=== PATIENT | male | born 1955 | race African-American/Black ===

== ENCOUNTER 2021-06-17 22:52 | Observation (INO) ==
[2021-06-18 00:33] LABS: Alanine Aminotransferase 22 U/L (16-61); Albumin 2.2 G/DL (3.4-5.0); Alkaline Phosphatase 89 U/L (45-117); Aspartate Amino Transferase 32 U/L (0-37); Bilirubin,Total < 0.39 MG/DL (0.20-1.00); Blood Urea Nitrogen 14 MG/DL (7-18); Calcium 8.6 MG/DL (8.5-10.1); Carbon Dioxide 26 MMOL/L (21-32); Estimated Glom Filtration Rate 122 ML/MIN; Glucose 135 MG/DL (74-106); Osmolality,Calculated 277.7 MOS/KG (273-304); Potassium 3.9 MMOL/L (3.5-5.1); Sodium 138 MMOL/L (136-145); Total Protein 8.5 G/DL (6.4-8.2)
[2021-06-18 00:37] LABS: Lactic Acid 3.3 MMOL/L (0.4-2.0)
[2021-06-18 00:44] LABS: Bilirubin,Urine Negative (Negative); Blood, Urine Negative (Negative); Glucose,Urine (UA) 50 mg/dL (Negative); Ketones,Urine Negative (Negative); Mucus,Urine Occasional /LPF (Occasional); Nitrite,Urine Negative (Negative); Protein,Urine Negative; RBC,Urine 5 /HPF (0-4); Squamous Epithelial Cell,Urine Occasional /HPF (0-10); Urine Appearance CLEAR (Clear); Urine Color Yellow (Yellow); Urine Specific Gravity 1.013 (1.001-1.035); Urine Urobilinogen < 2.0 EU/DL (0.2-1.0)
[2021-06-18 00:53] LABS: Barbiturates Screen,Urine Negative (Negative); Benzodiazepines Screen,Urine Negative (Negative); Cannabinoid Screen,Urine Negative (Negative); Opiate Screen,Urine Positive (Negative); Phencyclidine Screen,Urine Negative (Negative)
[2021-06-18 00:57] LABS: Basophils # 0.1 10*3/uL (0.0-0.2); Basophils % 0.6 % (0.0-0.8); Eosinophils # 0.6 10*3/uL (0.0-0.87); Eosinophils % 6.7 % (0.00-10.9); Hematocrit 35.7 VOL% (42.0-52.0); Hemoglobin 10.9 GM/DL (14.0-18.0); Immature Granulocytes % 0.5 %; Immature Granulocytes Absolute 0.04 #; Lymphocytes # 2.8 10*3/uL (1.4-4.0); Lymphocytes % 33.7 % (21.2-54.2); Mean Corpuscular HGB Conc 30.5 GM/DL (32-36); Mean Platelet Volume 11.2 FL (9.6-12.0); Monocytes % 9.3 % (1.7-12.7); Neutrophils % 49.2 % (38.7-73.9); Platelet Count 273 T/CUMM (130-400); Red Blood Count 3.68 MC/CUMM (3.8-5.5); Red Cell Distribution Width 17.4 % (9.3-17.3); White Blood Count 8.4 T/CUMM (4-12)
[2021-06-18] MEDS ORDERED: SIMETHICONE CHEW 125 MG TABLET PO PRN (02:02)
[2021-06-18] MEDS ORDERED: DEXTROSE 50% 25 GM/50 ML VIAL IV PRN (02:02)
[2021-06-18] MEDS ORDERED: GLUCAGON 1 MG VIAL IM PRN (02:02)
[2021-06-18] MEDS ORDERED: ONDANSETRON 4 MG/2 ML VIAL IV PRN (02:02)
[2021-06-18] MEDS ORDERED: SODIUM CHLORIDE 0.9% 1,000 ML IV SCH (06:00)
[2021-06-18] MEDS: INSULIN REGULAR 100 UNIT/ML SUBCUT SCH ×3 (08:44→16:37)
[2021-06-18] MEDS ORDERED: risperiDONE 1 MG TABLET PO SCH (09:00)
[2021-06-18] MEDS: DOCUSATE SODIUM 100 MG CAPSULE PO SCH ×2 (09:21→22:16)
[2021-06-18] MEDS: lisinopriL 2.5 MG TABLET PO SCH (09:21)
[2021-06-18] MEDS: POTASSIUM CHLORIDE 10 MEQ TABLET PO SCH (09:21)
[2021-06-18] MEDS: SERTRALINE 100 MG TABLET PO SCH (09:21)
[2021-06-18] MEDS: ASPIRIN EC 81 MG TABLET PO SCH (09:21)
[2021-06-18] MEDS: FOLIC ACID 1 MG TABLET PO SCH (09:22)
[2021-06-18] MEDS: METOPROLOL TARTRATE 25 MG TABLET PO SCH ×2 (09:22→22:19)
[2021-06-18] MEDS: amLODIPine 5 MG TABLET PO SCH (09:22)
[2021-06-18] MEDS: PANTOPRAZOLE 40 MG TABLET PO SCH (09:23)
[2021-06-18] MEDS: cefTRIAXone 1,000 MG in SODIUM CHLORIDE 0.9% 100 ML IV SCH (09:23)
[2021-06-18] MEDS: ENOXAPARIN 40 MG/0.4 ML SYRINGE SUBCUT SCH (09:23)
[2021-06-18] MEDS: DIVALPROEX 500 MG TABLET PO SCH ×2 (09:23→22:16)
[2021-06-18] MEDS: ACETAMINOPHEN 325 MG TABLET PO PRN ×2 (09:32→18:21)
[2021-06-18] MEDS ORDERED: MAGNESIUM CITRATE 300 ML BOTTLE PO ONE (10:15)
[2021-06-18] MEDS ORDERED: SODIUM CHLORIDE 0.9% 2,000 ML IV ONE (15:38)
[2021-06-18] MEDS: MENTHOL/ZINC OXIDE OINT 71 GM JAR TOP SCH (16:01)
[2021-06-18] MEDS ORDERED: INSULIN GLARGINE 100 UNIT/ML SUBCUT SCH (21:00)
[2021-06-18] MEDS: INSULIN GLARGINE 100 UNIT/ML SUBCUT SCH (22:15)
[2021-06-18] MEDS: LACTULOSE 20 GM/30 ML UDCUP PO SCH (22:15)
[2021-06-18] MEDS: ATORVASTATIN 40 MG TABLET PO SCH (22:18)
[2021-06-19] MEDS: MENTHOL/ZINC OXIDE OINT 71 GM JAR TOP SCH ×3 (00:15→21:03)
[2021-06-19] MEDS: INSULIN REGULAR 100 UNIT/ML SUBCUT SCH ×5 (00:17→20:34)
[2021-06-19 02:05] LABS: Basophils % 0.4 % (0.0-0.8); Eosinophils # 0.4 10*3/uL (0.0-0.87); Eosinophils % 4.4 % (0.00-10.9); Hematocrit 32.4 VOL% (42.0-52.0); Hemoglobin 9.6 GM/DL (14.0-18.0); Immature Granulocytes % 0.2 %; Immature Granulocytes Absolute 0.02 #; Lymphocytes # 3.9 10*3/uL (1.4-4.0); Lymphocytes % 42.4 % (21.2-54.2); Mean Corpuscular HGB Conc 29.6 GM/DL (32-36); Mean Corpuscular Volume 97.9 FL (87-102); Mean Platelet Volume 10.2 FL (9.6-12.0); Monocytes % 9.7 % (1.7-12.7); Neutrophils % 42.9 % (38.7-73.9); Platelet Count 261 T/CUMM (130-400); Red Blood Count 3.31 MC/CUMM (3.8-5.5); Red Cell Distribution Width 17.8 % (9.3-17.3); White Blood Count 9.3 T/CUMM (4-12)
[2021-06-19 02:12] LABS: Calcium 8.5 MG/DL (8.5-10.1); Osmolality,Calculated 281.1 MOS/KG (273-304); Potassium 4.4 MMOL/L (3.5-5.1)
[2021-06-19] MEDS: ACETAMINOPHEN 325 MG TABLET PO PRN ×2 (06:13→10:07)
[2021-06-19] MEDS: cefTRIAXone 1,000 MG in SODIUM CHLORIDE 0.9% 100 ML IV SCH (06:30)
[2021-06-19] MEDS: LACTULOSE 20 GM/30 ML UDCUP PO SCH ×3 (10:04→21:05)
[2021-06-19] MEDS: ENOXAPARIN 40 MG/0.4 ML SYRINGE SUBCUT SCH (10:05)
[2021-06-19] MEDS: PANTOPRAZOLE 40 MG TABLET PO SCH (10:05)
[2021-06-19] MEDS: DIVALPROEX 500 MG TABLET PO SCH ×2 (10:05→20:49)
[2021-06-19] MEDS: lisinopriL 2.5 MG TABLET PO SCH (10:05)
[2021-06-19] MEDS: POTASSIUM CHLORIDE 10 MEQ TABLET PO SCH (10:06)
[2021-06-19] MEDS: METOPROLOL TARTRATE 25 MG TABLET PO SCH ×2 (10:06→20:49)
[2021-06-19] MEDS: ASPIRIN EC 81 MG TABLET PO SCH (10:06)
[2021-06-19] MEDS: SERTRALINE 100 MG TABLET PO SCH (10:06)
[2021-06-19] MEDS: amLODIPine 5 MG TABLET PO SCH (10:06)
[2021-06-19] MEDS: FOLIC ACID 1 MG TABLET PO SCH (10:07)
[2021-06-19] MEDS: DOCUSATE SODIUM 100 MG CAPSULE PO SCH ×3 (10:07→21:05)
[2021-06-19] MEDS ORDERED: oxyCODONE/ACETAMINOPHEN 5-325 MG TABLET PO ONE (11:53)
[2021-06-19] MEDS: oxyCODONE/ACETAMINOPHEN 5-325 MG TABLET PO PRN (18:35)
[2021-06-19] MEDS: INSULIN GLARGINE 100 UNIT/ML SUBCUT SCH (20:47)
[2021-06-19] MEDS: ATORVASTATIN 40 MG TABLET PO SCH (20:49)
[2021-06-20] MEDS: oxyCODONE/ACETAMINOPHEN 5-325 MG TABLET PO PRN ×4 (01:23→19:14)
[2021-06-20 05:07] LABS: Platelet Estimate Adequate
[2021-06-20 05:08] LABS: Anisocytosis 1+; Hypochromasia 2+
[2021-06-20 05:10] LABS: Basophils % 0.5 % (0.0-0.8); Eosinophils # 0.5 10*3/uL (0.0-0.87); Hematocrit 33.4 VOL% (42.0-52.0); Hemoglobin 9.8 GM/DL (14.0-18.0); Immature Granulocytes % 0.3 %; Immature Granulocytes Absolute 0.02 #; Lymphocytes # 2.4 10*3/uL (1.4-4.0); Lymphocytes % 31.9 % (21.2-54.2); Mean Corpuscular HGB Conc 29.3 GM/DL (32-36); Mean Corpuscular Volume 98.2 FL (87-102); Mean Platelet Volume 11.1 FL (9.6-12.0); Neutrophils % 51.3 % (38.7-73.9); Platelet Count 240 T/CUMM (130-400); Red Cell Distribution Width 17.9 % (9.3-17.3); White Blood Count 7.6 T/CUMM (4-12)
[2021-06-20] MEDS: cefTRIAXone 1,000 MG in SODIUM CHLORIDE 0.9% 100 ML IV SCH (06:10)
[2021-06-20] MEDS: INSULIN REGULAR 100 UNIT/ML SUBCUT SCH ×4 (09:29→22:04)
[2021-06-20] MEDS: lisinopriL 2.5 MG TABLET PO SCH (09:33)
[2021-06-20] MEDS: LACTULOSE 20 GM/30 ML UDCUP PO SCH ×3 (09:33→22:03)
[2021-06-20] MEDS: PANTOPRAZOLE 40 MG TABLET PO SCH (09:34)
[2021-06-20] MEDS: FOLIC ACID 1 MG TABLET PO SCH (09:34)
[2021-06-20] MEDS: DOCUSATE SODIUM 100 MG CAPSULE PO SCH ×2 (09:34→22:03)
[2021-06-20] MEDS: POTASSIUM CHLORIDE 10 MEQ TABLET PO SCH (09:34)
[2021-06-20] MEDS: ASPIRIN EC 81 MG TABLET PO SCH (09:34)
[2021-06-20] MEDS: SERTRALINE 100 MG TABLET PO SCH (09:34)
[2021-06-20] MEDS: METOPROLOL TARTRATE 25 MG TABLET PO SCH ×2 (09:35→22:03)
[2021-06-20] MEDS: amLODIPine 5 MG TABLET PO SCH (09:35)
[2021-06-20] MEDS: DIVALPROEX 500 MG TABLET PO SCH ×2 (09:35→22:02)
[2021-06-20] MEDS: ENOXAPARIN 40 MG/0.4 ML SYRINGE SUBCUT SCH (09:35)
[2021-06-20] MEDS: MENTHOL/ZINC OXIDE OINT 71 GM JAR TOP SCH ×2 (09:36→22:03)
[2021-06-20] MEDS: ATORVASTATIN 40 MG TABLET PO SCH (22:03)
[2021-06-20] MEDS: INSULIN GLARGINE 100 UNIT/ML SUBCUT SCH (22:04)
[2021-06-21] MEDS: oxyCODONE/ACETAMINOPHEN 5-325 MG TABLET PO PRN ×4 (00:27→17:51)
[2021-06-21] MEDS: cefTRIAXone 1,000 MG in SODIUM CHLORIDE 0.9% 100 ML IV SCH (06:40)
[2021-06-21] MEDS: INSULIN REGULAR 100 UNIT/ML SUBCUT SCH ×4 (08:21→21:52)
[2021-06-21] MEDS: METOPROLOL TARTRATE 25 MG TABLET PO SCH ×2 (10:38→21:15)
[2021-06-21] MEDS: FOLIC ACID 1 MG TABLET PO SCH (10:38)
[2021-06-21] MEDS: lisinopriL 2.5 MG TABLET PO SCH (10:38)
[2021-06-21] MEDS: PANTOPRAZOLE 40 MG TABLET PO SCH (10:38)
[2021-06-21] MEDS: amLODIPine 5 MG TABLET PO SCH (10:38)
[2021-06-21] MEDS: ASPIRIN EC 81 MG TABLET PO SCH (10:38)
[2021-06-21] MEDS: DIVALPROEX 500 MG TABLET PO SCH ×2 (10:38→21:14)
[2021-06-21] MEDS: ENOXAPARIN 40 MG/0.4 ML SYRINGE SUBCUT SCH (10:39)
[2021-06-21] MEDS: MENTHOL/ZINC OXIDE OINT 71 GM JAR TOP SCH ×2 (10:39→21:52)
[2021-06-21] MEDS: DOCUSATE SODIUM 100 MG CAPSULE PO SCH ×2 (10:39→21:52)
[2021-06-21] MEDS: SERTRALINE 100 MG TABLET PO SCH (10:39)
[2021-06-21] MEDS: POTASSIUM CHLORIDE 10 MEQ TABLET PO SCH (10:39)
[2021-06-21] MEDS: LACTULOSE 20 GM/30 ML UDCUP PO SCH ×2 (10:40→21:52)
[2021-06-21] MEDS: ATORVASTATIN 40 MG TABLET PO SCH (21:14)
[2021-06-21] MEDS: INSULIN GLARGINE 100 UNIT/ML SUBCUT SCH (21:53)
[2021-06-22] MEDS: oxyCODONE/ACETAMINOPHEN 5-325 MG TABLET PO PRN ×5 (00:10→23:40)
[2021-06-22 06:48] LABS: Calcium 8.3 MG/DL (8.5-10.1); Osmolality,Calculated 272.7 MOS/KG (273-304); Potassium 4.1 MMOL/L (3.5-5.1)
[2021-06-22 07:03] LABS: Basophils % 0.4 % (0.0-0.8); Eosinophils # 0.5 10*3/uL (0.0-0.87); Eosinophils % 6.8 % (0.00-10.9); Hematocrit 35.4 VOL% (42.0-52.0); Hemoglobin 10.6 GM/DL (14.0-18.0); Immature Granulocytes % 0.4 %; Immature Granulocytes Absolute 0.03 #; Lymphocytes # 2.4 10*3/uL (1.4-4.0); Lymphocytes % 34.4 % (21.2-54.2); Mean Corpuscular HGB Conc 29.9 GM/DL (32-36); Mean Corpuscular Volume 97.5 FL (87-102); Mean Platelet Volume 10.3 FL (9.6-12.0); Monocytes % 8.1 % (1.7-12.7); NRBC # 0.03 10*3/uL; Neutrophils % 49.9 % (38.7-73.9); Platelet Count 247 T/CUMM (130-400); Red Blood Count 3.63 MC/CUMM (3.8-5.5)
[2021-06-22] MEDS: cefTRIAXone 1,000 MG in SODIUM CHLORIDE 0.9% 100 ML IV SCH (07:38)
[2021-06-22] MEDS: INSULIN REGULAR 100 UNIT/ML SUBCUT SCH ×4 (07:47→22:38)
[2021-06-22] MEDS: LACTULOSE 20 GM/30 ML UDCUP PO SCH ×2 (09:20→21:35)
[2021-06-22] MEDS: ENOXAPARIN 40 MG/0.4 ML SYRINGE SUBCUT SCH (09:21)
[2021-06-22] MEDS: POTASSIUM CHLORIDE 10 MEQ TABLET PO SCH (09:21)
[2021-06-22] MEDS: SERTRALINE 100 MG TABLET PO SCH (09:22)
[2021-06-22] MEDS: FOLIC ACID 1 MG TABLET PO SCH (09:22)
[2021-06-22] MEDS: METOPROLOL TARTRATE 25 MG TABLET PO SCH ×2 (09:22→21:36)
[2021-06-22] MEDS: DOCUSATE SODIUM 100 MG CAPSULE PO SCH ×2 (09:22→21:35)
[2021-06-22] MEDS: lisinopriL 2.5 MG TABLET PO SCH (09:22)
[2021-06-22] MEDS: DIVALPROEX 500 MG TABLET PO SCH ×2 (09:22→21:35)
[2021-06-22] MEDS: amLODIPine 5 MG TABLET PO SCH (09:22)
[2021-06-22] MEDS: PANTOPRAZOLE 40 MG TABLET PO SCH (09:22)
[2021-06-22] MEDS: ASPIRIN EC 81 MG TABLET PO SCH (09:22)
[2021-06-22] MEDS: MENTHOL/ZINC OXIDE OINT 71 GM JAR TOP SCH ×2 (09:53→22:38)
[2021-06-22] MEDS ORDERED: TUBERCULIN SKIN TEST 0.1 ML SYRINGE INTRADERM ONE (12:33)
[2021-06-22] MEDS: ATORVASTATIN 40 MG TABLET PO SCH (21:36)
[2021-06-22] MEDS: INSULIN GLARGINE 100 UNIT/ML SUBCUT SCH (22:39)
[2021-06-23] MEDS: oxyCODONE/ACETAMINOPHEN 5-325 MG TABLET PO PRN ×4 (05:49→23:35)
[2021-06-23] MEDS: cefTRIAXone 1,000 MG in SODIUM CHLORIDE 0.9% 100 ML IV SCH (06:00)
[2021-06-23] MEDS: INSULIN REGULAR 100 UNIT/ML SUBCUT SCH ×4 (07:36→21:43)
[2021-06-23] MEDS: LACTULOSE 20 GM/30 ML UDCUP PO SCH ×2 (09:27→21:42)
[2021-06-23] MEDS: ASPIRIN EC 81 MG TABLET PO SCH (09:28)
[2021-06-23] MEDS: PANTOPRAZOLE 40 MG TABLET PO SCH (09:28)
[2021-06-23] MEDS: SERTRALINE 100 MG TABLET PO SCH (09:28)
[2021-06-23] MEDS: amLODIPine 5 MG TABLET PO SCH (09:28)
[2021-06-23] MEDS: DOCUSATE SODIUM 100 MG CAPSULE PO SCH ×2 (09:28→21:42)
[2021-06-23] MEDS: FOLIC ACID 1 MG TABLET PO SCH (09:28)
[2021-06-23] MEDS: DIVALPROEX 500 MG TABLET PO SCH ×2 (09:28→21:42)
[2021-06-23] MEDS: POTASSIUM CHLORIDE 10 MEQ TABLET PO SCH (09:28)
[2021-06-23] MEDS: lisinopriL 2.5 MG TABLET PO SCH (09:34)
[2021-06-23] MEDS: METOPROLOL TARTRATE 25 MG TABLET PO SCH ×2 (09:34→21:43)
[2021-06-23] MEDS: ENOXAPARIN 40 MG/0.4 ML SYRINGE SUBCUT SCH (09:35)
[2021-06-23] MEDS: MENTHOL/ZINC OXIDE OINT 71 GM JAR TOP SCH ×2 (09:35→21:42)
[2021-06-23] MEDS: INSULIN GLARGINE 100 UNIT/ML SUBCUT SCH (21:43)
[2021-06-23] MEDS: ATORVASTATIN 40 MG TABLET PO SCH (21:43)
[2021-06-24] MEDS: oxyCODONE/ACETAMINOPHEN 5-325 MG TABLET PO PRN ×2 (05:35→12:16)
[2021-06-24] MEDS: cefTRIAXone 1,000 MG in SODIUM CHLORIDE 0.9% 100 ML IV SCH (06:00)
[2021-06-24] MEDS: INSULIN REGULAR 100 UNIT/ML SUBCUT SCH ×3 (09:17→17:13)
[2021-06-24] MEDS: DOCUSATE SODIUM 100 MG CAPSULE PO SCH (10:12)
[2021-06-24] MEDS: FOLIC ACID 1 MG TABLET PO SCH (10:12)
[2021-06-24] MEDS: ASPIRIN EC 81 MG TABLET PO SCH (10:12)
[2021-06-24] MEDS: POTASSIUM CHLORIDE 10 MEQ TABLET PO SCH (10:12)
[2021-06-24] MEDS: lisinopriL 2.5 MG TABLET PO SCH (10:12)
[2021-06-24] MEDS: MENTHOL/ZINC OXIDE OINT 71 GM JAR TOP SCH (10:13)
[2021-06-24] MEDS: PANTOPRAZOLE 40 MG TABLET PO SCH (10:13)
[2021-06-24] MEDS: amLODIPine 5 MG TABLET PO SCH (10:13)
[2021-06-24] MEDS: SERTRALINE 100 MG TABLET PO SCH (10:13)
[2021-06-24] MEDS: METOPROLOL TARTRATE 25 MG TABLET PO SCH (10:13)
[2021-06-24] MEDS: DIVALPROEX 500 MG TABLET PO SCH (10:13)
[2021-06-24] MEDS: LACTULOSE 20 GM/30 ML UDCUP PO SCH (10:13)
[2021-06-24] MEDS: ENOXAPARIN 40 MG/0.4 ML SYRINGE SUBCUT SCH (10:15)
[2021-06-24 16:58] VITALS: BP 106/45
== END 2021-06-24 17:55 | disposition home or self-care (01) ==
LOC: N.EDINP 22:52 → N.ED 22:52 → SUATTDRO 06-18 02:02 → N.2W 06-18 02:33 → SUATTDRO 06-18 13:01
PROVIDERS: ADMIT Nurse Practitioner Family; ATTEND Internal Medicine

== ENCOUNTER 2022-02-10 22:29 | Inpatient (IN) ==
[2022-02-10] MEDS ORDERED: SODIUM CHLORIDE 0.9% 1,000 ML IV STA ×2 (23:04→23:53)
[2022-02-10 23:19] LABS: Basophils % 0.2 % (0.0-0.8); Eosinophils % 0.4 % (0.00-10.9); Hematocrit 36.6 VOL% (42.0-52.0); Immature Granulocytes % 0.3 %; Immature Granulocytes Absolute 0.03 #; Lymphocytes # 1.6 10*3/uL (1.4-4.0); Lymphocytes % 17.6 % (21.2-54.2); Mean Corpuscular HGB Conc 30.1 GM/DL (32-36); Mean Corpuscular Volume 103.1 FL (87-102); Monocytes # 0.6 10*3/uL (0.11-0.8); Monocytes % 6.9 % (1.7-12.7); Neutrophils % 74.6 % (38.7-73.9); Platelet Count 205 T/CUMM (130-400); Red Blood Count 3.55 MC/CUMM (3.8-5.5); Red Cell Distribution Width 16.2 % (9.3-17.3)
[2022-02-10 23:28] LABS: Hyaline Casts,Urine 163 /LPF (0-3); Mucus,Urine Occasional /LPF (Occasional); RBC,Urine 22 /HPF (0-4); Squamous Epithelial Cell,Urine Occasional /HPF (0-10)
[2022-02-10 23:29] LABS: Bilirubin,Urine Large mg/dL (Negative); Blood, Urine Large mg/dL (Negative); Glucose,Urine (UA) Negative (Negative); Ketones,Urine 15 mg/dL (Negative); Nitrite,Urine Negative (Negative); Protein,Urine 100 mg/dL (Negative); Urine Appearance CLOUDY (Clear); Urine Color Yellow (Yellow); Urine Urobilinogen 0.2 eU/dL (<2.0)
[2022-02-10 23:36] LABS: PT Patient Result 11.5 SECS (10.5-12.0); Partial Thromboplastin Time 28.3 SECS (23.8-32.1)
[2022-02-10 23:42] LABS: Albumin 2.7 G/DL (3.4-5.0); Bilirubin,Total 0.4 MG/DL (0.20-1.00); Calcium 8.6 MG/DL (8.5-10.1); Osmolality,Calculated 291.8 MOS/KG (273-304); Total Protein 8.3 G/DL (6.4-8.2)
[2022-02-10 23:51] LABS: Potassium 6.4 MMOL/L (3.5-5.1)
[2022-02-10] MEDS ORDERED: DEXTROSE 50% 25 GM/50 ML VIAL IV STA (23:53)
[2022-02-10] MEDS ORDERED: cefTRIAXone 1,000 MG in SODIUM CHLORIDE 0.9% 100 ML IV STA (23:53)
[2022-02-10] MEDS ORDERED: DEXTROSE 50% 25 GM/50 ML SYRINGE IV STA (23:54)
[2022-02-10] MEDS ORDERED: DEXTROSE 50% 25 GM/50 ML SYRINGE IV ONE (23:55)
[2022-02-11] MEDS ORDERED: DEXTROSE 50% 25 GM/50 ML VIAL IV STA (00:22)
[2022-02-11] MEDS ORDERED: INSULIN REGULAR 100 UNIT/ML IV STA (00:22)
[2022-02-11] MEDS ORDERED: DEXTROSE 50% 25 GM/50 ML SYRINGE IV STA (00:23)
[2022-02-11] MEDS ORDERED: SODIUM BICARBONATE 50 MEQ/50 ML SYRINGE IV ONE (00:35)
[2022-02-11] MEDS ORDERED: ALBUTEROL 2.5 MG/3 ML NEB RESP TX PRN (00:39)
[2022-02-11] MEDS ORDERED: ONDANSETRON 4 MG/2 ML VIAL IV PRN (00:41)
[2022-02-11] MEDS ORDERED: SODIUM BICARBONATE 50 MEQ/50 ML VIAL IV STA (00:41)
[2022-02-11] MEDS ORDERED: SODIUM ZIRCONIUM CYCLOSILICATE 10 GM PACK PO ONE (00:45)
[2022-02-11] MEDS ORDERED: GLUCAGON 1 MG VIAL IM PRN (01:11)
[2022-02-11] MEDS ORDERED: DEXTROSE 10% 250 ML BAG IV PRN (01:22)
[2022-02-11] MEDS: HYDROCORTISONE 100 MG VIAL IV SCH ×3 (01:30→17:15)
[2022-02-11] MEDS: PANTOPRAZOLE 40 MG VIAL IV SCH (01:30)
[2022-02-11] MEDS ORDERED: PNEUMOCOCCAL VACCINE (13 VALENT) 0.5 ML SYRINGE IM ONE (01:53)
[2022-02-11] MEDS ORDERED: SODIUM BICARB INJ 150 MEQ in DEXTROSE 5% 1,000 ML IV SCH (02:00)
[2022-02-11 04:24] LABS: Basophils % 0.3 % (0.0-0.8); Eosinophils % 0.5 % (0.00-10.9); Hematocrit 36.1 VOL% (42.0-52.0); Hemoglobin 10.9 GM/DL (14.0-18.0); Immature Granulocytes % 0.3 %; Immature Granulocytes Absolute 0.02 #; Lymphocytes % 14.1 % (21.2-54.2); Mean Corpuscular HGB Conc 30.2 GM/DL (32-36); Mean Corpuscular Volume 101.4 FL (87-102); Mean Platelet Volume 10.2 FL (9.6-12.0); Monocytes # 0.3 10*3/uL (0.11-0.8); Monocytes % 4.5 % (1.7-12.7); Neutrophils % 80.3 % (38.7-73.9); Platelet Count 178 T/CUMM (130-400); Red Blood Count 3.56 MC/CUMM (3.8-5.5); Red Cell Distribution Width 16.2 % (9.3-17.3); White Blood Count 7.3 T/CUMM (4-12)
[2022-02-11 04:53] LABS: Albumin 2.4 G/DL (3.4-5.0); Bilirubin,Total 0.4 MG/DL (0.20-1.00); Calcium 8.4 MG/DL (8.5-10.1); Osmolality,Calculated 296.4 MOS/KG (273-304); Total Protein 8.3 G/DL (6.4-8.2)
[2022-02-11] MEDS: SODIUM BICARB INJ 100 MEQ in DEXTROSE 5% 1,000 ML IV SCH ×2 (06:30→15:33)
[2022-02-11] MEDS: risperiDONE 1 MG TABLET PO SCH ×2 (09:33→20:07)
[2022-02-11] MEDS: FOLIC ACID 1 MG TABLET PO SCH (09:33)
[2022-02-11] MEDS: SERTRALINE 100 MG TABLET PO SCH (09:34)
[2022-02-11] MEDS ORDERED: SODIUM CHLORIDE 0.9% 500 ML IV ONE (12:00)
[2022-02-11 14:52] LABS: Calcium 7.9 MG/DL (8.5-10.1); Potassium 3.7 MMOL/L (3.5-5.1)
[2022-02-11] MEDS ORDERED: MAGNESIUM SULF RIDER 2 GM/50 ML PREMIX IV ONE (15:10)
[2022-02-11] MEDS: NOREPINEPHRINE 8 MG in SODIUM CHLORIDE 0.9% 242 ML IV PRN (15:15)
[2022-02-11] MEDS: SODIUM CHLORIDE 0.9% 1,000 ML IV SCH (15:32)
[2022-02-12] MEDS: NOREPINEPHRINE 8 MG in SODIUM CHLORIDE 0.9% 242 ML IV PRN (00:40)
[2022-02-12] MEDS: HYDROCORTISONE 100 MG VIAL IV SCH ×3 (01:34→16:34)
[2022-02-12] MEDS: PANTOPRAZOLE 40 MG VIAL IV SCH (01:34)
[2022-02-12] MEDS: cefTRIAXone 1,000 MG in SODIUM CHLORIDE 0.9% 100 ML IV SCH (01:34)
[2022-02-12] MEDS: SODIUM CHLORIDE 0.9% 1,000 ML IV SCH ×3 (01:35→20:54)
[2022-02-12 03:51] LABS: Basophils % 0.1 % (0.0-0.8); Eosinophils % 0.1 % (0.00-10.9); Hemoglobin 10.4 GM/DL (14.0-18.0); Immature Granulocytes % 0.5 %; Immature Granulocytes Absolute 0.07 #; Lymphocytes # 1.9 10*3/uL (1.4-4.0); Mean Corpuscular HGB Conc 31.5 GM/DL (32-36); Mean Corpuscular Volume 98.8 FL (87-102); Mean Platelet Volume 10.3 FL (9.6-12.0); Monocytes # 0.6 10*3/uL (0.11-0.8); Monocytes % 4.5 % (1.7-12.7); Neutrophils % 80.8 % (38.7-73.9); Platelet Count 190 T/CUMM (130-400); Red Blood Count 3.34 MC/CUMM (3.8-5.5); White Blood Count 13.5 T/CUMM (4-12)
[2022-02-12 04:03] LABS: Alanine Aminotransferase 15 U/L (16-61); Alkaline Phosphatase 88 U/L (45-117); Aspartate Amino Transferase 23 U/L (0-37); Bilirubin,Total < 0.39 MG/DL (0.20-1.00); Blood Urea Nitrogen 36 MG/DL (7-18); Calcium 7.6 MG/DL (8.5-10.1); Carbon Dioxide 24 MMOL/L (21-32); Chloride 112 MMOL/L (98-107); Glucose 157 MG/DL (74-106); Osmolality,Calculated 296.8 MOS/KG (273-304); Potassium 3.5 MMOL/L (3.5-5.1); Sodium 144 MMOL/L (136-145); Total Protein 7.6 G/DL (6.4-8.2)
[2022-02-12] MEDS: FOLIC ACID 1 MG TABLET PO SCH (08:39)
[2022-02-12] MEDS: risperiDONE 1 MG TABLET PO SCH ×2 (08:39→20:52)
[2022-02-12] MEDS: SERTRALINE 100 MG TABLET PO SCH (08:39)
[2022-02-12] MEDS: MORPHINE 2 MG/1 ML SYRINGE IV PRN ×4 (08:41→21:55)
[2022-02-13] MEDS: HYDROCORTISONE 100 MG VIAL IV SCH ×3 (00:54→17:20)
[2022-02-13] MEDS: PANTOPRAZOLE 40 MG VIAL IV SCH (00:56)
[2022-02-13] MEDS: cefTRIAXone 1,000 MG in SODIUM CHLORIDE 0.9% 100 ML IV SCH (00:59)
[2022-02-13 05:47] LABS: Basophils % 0.1 % (0.0-0.8); Hematocrit 29.3 VOL% (42.0-52.0); Hemoglobin 8.9 GM/DL (14.0-18.0); Immature Granulocytes % 0.7 %; Lymphocytes # 1.1 10*3/uL (1.4-4.0); Lymphocytes % 12.9 % (21.2-54.2); Mean Corpuscular HGB Conc 30.4 GM/DL (32-36); Mean Corpuscular Volume 101.4 FL (87-102); Mean Platelet Volume 10.7 FL (9.6-12.0); Monocytes # 0.4 10*3/uL (0.11-0.8); Neutrophils % 81.3 % (38.7-73.9); Platelet Count 163 T/CUMM (130-400); Red Blood Count 2.89 MC/CUMM (3.8-5.5); Red Cell Distribution Width 16.4 % (9.3-17.3); White Blood Count 8.8 T/CUMM (4-12)
[2022-02-13 05:48] LABS: Immature Granulocytes Absolute 0.06 #
[2022-02-13 06:11] LABS: Alanine Aminotransferase 14 U/L (16-61); Albumin 1.8 G/DL (3.4-5.0); Alkaline Phosphatase 71 U/L (45-117); Aspartate Amino Transferase 19 U/L (0-37); Bilirubin,Total < 0.39 MG/DL (0.20-1.00); Blood Urea Nitrogen 18 MG/DL (7-18); Calcium 7.7 MG/DL (8.5-10.1); Carbon Dioxide 25 MMOL/L (21-32); Chloride 118 MMOL/L (98-107); Glucose 107 MG/DL (74-106); Osmolality,Calculated 297.1 MOS/KG (273-304); Potassium 3.3 MMOL/L (3.5-5.1); Sodium 149 MMOL/L (136-145); Total Protein 6.5 G/DL (6.4-8.2)
[2022-02-13] MEDS ORDERED: POTASSIUM CHLORIDE 20 MEQ TABLET PO ONE ×2 (07:23→13:22)
[2022-02-13] MEDS: SODIUM CHLORIDE 0.9% 1,000 ML IV SCH (09:02)
[2022-02-13] MEDS: FOLIC ACID 1 MG TABLET PO SCH (09:03)
[2022-02-13] MEDS: risperiDONE 1 MG TABLET PO SCH ×2 (09:03→20:58)
[2022-02-13] MEDS: SERTRALINE 100 MG TABLET PO SCH (09:03)
[2022-02-13] MEDS: MORPHINE 2 MG/1 ML SYRINGE IV PRN ×3 (09:14→21:02)
[2022-02-13] MEDS ORDERED: MAGNESIUM SULF RIDER 2 GM/50 ML PREMIX IV ONE (09:37)
[2022-02-13] MEDS: DEXTROSE 5% 1,000 ML IV SCH (10:24)
[2022-02-13 13:00] LABS: Calcium 7.4 MG/DL (8.5-10.1); Osmolality,Calculated 293.6 MOS/KG (273-304); Potassium 3.2 MMOL/L (3.5-5.1)
[2022-02-13] MEDS ORDERED: MAGNESIUM HYDROXIDE SUSP 30 ML UDCUP PO ONE (17:05)
[2022-02-13] MEDS ORDERED: POLYETHYLENE GLYCOL POWDER 17 GM PACK PO ONE (17:06)
[2022-02-14] MEDS: PANTOPRAZOLE 40 MG VIAL IV SCH (00:49)
[2022-02-14] MEDS: HYDROCORTISONE 100 MG VIAL IV SCH ×2 (00:51→08:59)
[2022-02-14] MEDS: cefTRIAXone 1,000 MG in SODIUM CHLORIDE 0.9% 100 ML IV SCH (00:52)
[2022-02-14] MEDS: DEXTROSE 5% 1,000 ML IV SCH ×2 (00:53→07:23)
[2022-02-14] MEDS: FOLIC ACID 1 MG TABLET PO SCH (08:48)
[2022-02-14] MEDS: risperiDONE 1 MG TABLET PO SCH ×2 (08:48→21:56)
[2022-02-14] MEDS: SERTRALINE 100 MG TABLET PO SCH (08:49)
[2022-02-14] MEDS: MORPHINE 2 MG/1 ML SYRINGE IV PRN ×3 (09:02→21:59)
[2022-02-14 09:31] LABS: Basophils % 0.1 % (0.0-0.8); Eosinophils % 0.3 % (0.00-10.9); Hematocrit 32.7 VOL% (42.0-52.0); Hemoglobin 10.2 GM/DL (14.0-18.0); Immature Granulocytes % 0.9 %; Immature Granulocytes Absolute 0.09 #; Lymphocytes # 2.3 10*3/uL (1.4-4.0); Lymphocytes % 22.7 % (21.2-54.2); Mean Corpuscular HGB Conc 31.2 GM/DL (32-36); Mean Corpuscular Volume 98.8 FL (87-102); Mean Platelet Volume 10.5 FL (9.6-12.0); Monocytes # 0.5 10*3/uL (0.11-0.8); Monocytes % 4.7 % (1.7-12.7); NRBC # 0.02 10*3/uL; Neutrophils % 71.3 % (38.7-73.9); Platelet Count 149 T/CUMM (130-400); Red Blood Count 3.31 MC/CUMM (3.8-5.5); Red Cell Distribution Width 16.1 % (9.3-17.3); White Blood Count 10.2 T/CUMM (4-12)
[2022-02-14 09:35] LABS: Calcium 7.2 MG/DL (8.5-10.1); Osmolality,Calculated 284.1 MOS/KG (273-304); Potassium 3.7 MMOL/L (3.5-5.1)
[2022-02-14] MEDS ORDERED: BISACODYL 5 MG TABLET PO ONE (10:47)
[2022-02-14] MEDS ORDERED: MAGNESIUM SULF RIDER 2 GM/50 ML PREMIX IV ONE ×3 (11:03→15:36)
[2022-02-14] MEDS: METOPROLOL TARTRATE 25 MG TABLET PO SCH ×2 (11:08→21:56)
[2022-02-14] MEDS: amLODIPine 5 MG TABLET PO SCH (11:08)
[2022-02-14] MEDS: DOCUSATE SODIUM 100 MG CAPSULE PO SCH ×2 (11:09→21:56)
[2022-02-14] MEDS ORDERED: ATORVASTATIN 40 MG TABLET PO SCH (21:00)
[2022-02-14] MEDS ORDERED: MELATONIN 3 MG TABLET PO SCH (21:00)
[2022-02-15] MEDS: PANTOPRAZOLE 40 MG VIAL IV SCH (01:15)
[2022-02-15] MEDS: cefTRIAXone 1,000 MG in SODIUM CHLORIDE 0.9% 100 ML IV SCH (01:18)
[2022-02-15 05:00] LABS: Basophils % 0.2 % (0.0-0.8); Eosinophils # 0.3 10*3/uL (0.0-0.87); Eosinophils % 3.1 % (0.00-10.9); Hematocrit 31.8 VOL% (42.0-52.0); Immature Granulocytes % 0.6 %; Immature Granulocytes Absolute 0.06 #; Lymphocytes % 31.6 % (21.2-54.2); Mean Corpuscular HGB Conc 31.4 GM/DL (32-36); Mean Corpuscular Volume 99.4 FL (87-102); Mean Platelet Volume 10.5 FL (9.6-12.0); Monocytes # 0.7 10*3/uL (0.11-0.8); Monocytes % 6.8 % (1.7-12.7); Neutrophils % 57.7 % (38.7-73.9); Platelet Count 141 T/CUMM (130-400); Red Cell Distribution Width 15.9 % (9.3-17.3); White Blood Count 9.6 T/CUMM (4-12)
[2022-02-15 05:17] LABS: Potassium 3.5 MMOL/L (3.5-5.1)
[2022-02-15] MEDS: METOPROLOL TARTRATE 25 MG TABLET PO SCH (09:04)
[2022-02-15] MEDS: amLODIPine 5 MG TABLET PO SCH (09:04)
[2022-02-15] MEDS: FOLIC ACID 1 MG TABLET PO SCH (09:04)
[2022-02-15] MEDS: DOCUSATE SODIUM 100 MG CAPSULE PO SCH (09:04)
[2022-02-15] MEDS: risperiDONE 1 MG TABLET PO SCH (09:04)
[2022-02-15] MEDS: SERTRALINE 100 MG TABLET PO SCH (09:06)
[2022-02-15] MEDS: MORPHINE 2 MG/1 ML SYRINGE IV PRN (09:16)
[2022-02-15] MEDS ORDERED: MAGNESIUM HYDROXIDE SUSP 30 ML UDCUP PO ONE (11:00)
[2022-02-15 16:06] VITALS: BP 135/77
[2022-02-16] MEDS ORDERED: PANTOPRAZOLE 40 MG TABLET PO SCH (06:30)
== END 2022-02-15 20:11 | disposition home health service (06) | DRG 682 ==
LOC: EDUNIT# → EDBD → N.ED 22:29 → SUATTDRO 02-11 00:39 → N.EDINP 02-11 00:39 → N.ICU 02-11 00:56 → N.5E 02-12 16:58
PROVIDERS: ADMIT Family Medicine; ATTEND Internal Medicine

== ENCOUNTER 2022-06-15 22:29 | Inpatient (IN) ==
[2022-06-15] MEDS ORDERED: ACETAMINOPHEN 500 MG TABLET PO STA (23:03)
[2022-06-15] MEDS ORDERED: SODIUM CHLORIDE 0.9% 1,000 ML IV STA (23:03)
[2022-06-15] MEDS ORDERED: PIPERACILLIN/TAZOBACTAM 3,375 MG in SODIUM CHLORIDE 0.9% 100 ML IV STA (23:03)
[2022-06-15 23:59] LABS: Ammonia < 10 UMOL/L (11-32)
[2022-06-16 00:05] LABS: Lactic Acid 1.8 MMOL/L (0.4-2.0)
[2022-06-16 00:13] LABS: Albumin 2.3 G/DL (3.4-5.0); Bilirubin,Total 0.5 MG/DL (0.20-1.00); Calcium 9.3 MG/DL (8.5-10.1); Osmolality,Calculated 277.7 MOS/KG (273-304); Potassium 3.5 MMOL/L (3.5-5.1); Total Protein 8.7 G/DL (6.4-8.2)
[2022-06-16 00:39] LABS: Basophils % 0.3 % (0.0-0.8); Immature Granulocytes % 0.4 %; Immature Granulocytes Absolute 0.04 #; Lymphocytes # 2.6 10*3/uL (1.4-4.0); Lymphocytes % 24.6 % (21.2-54.2); Mean Corpuscular HGB Conc 32.4 GM/DL (32-36); Mean Corpuscular Volume 98.1 FL (87-102); Mean Platelet Volume 10.7 FL (9.6-12.0); Monocytes # 0.4 10*3/uL (0.11-0.8); Monocytes % 4.2 % (1.7-12.7); Neutrophils % 70.5 % (38.7-73.9); Platelet Count 280 T/CUMM (130-400); Red Blood Count 3.77 MC/CUMM (3.8-5.5); Red Cell Distribution Width 15.9 % (9.3-17.3); White Blood Count 10.4 T/CUMM (4-12)
[2022-06-16 00:40] LABS: Bilirubin,Urine Negative (Negative); Blood, Urine Negative (Negative); Glucose,Urine (UA) Negative (Negative); Hyaline Casts,Urine 109 /LPF (0-3); Ketones,Urine 5 mg/dL (Negative); Mucus,Urine Many /LPF (Occasional); Nitrite,Urine Negative (Negative); Protein,Urine 100 mg/dL (Negative); RBC,Urine 22 /HPF (0-4); Squamous Epithelial Cell,Urine Few /HPF (0-10); Urine Appearance CLOUDY (Clear); Urine Color Amber (Yellow)
[2022-06-16] MEDS ORDERED: GLUCAGON 1 MG VIAL IM PRN (01:49)
[2022-06-16] MEDS ORDERED: ONDANSETRON 4 MG/2 ML VIAL IV PRN (01:49)
[2022-06-16] MEDS ORDERED: ALUMINUM/MAGNES/SIMETH MAX STR 30 ML UDCUP PO PRN (01:49)
[2022-06-16] MEDS ORDERED: hydrALAZINE 20 MG/1 ML VIAL IV PRN (01:49)
[2022-06-16] MEDS ORDERED: DEXTROSE 10% 250 ML BAG IV PRN (01:58)
[2022-06-16] MEDS ORDERED: cefTRIAXone 1,000 MG in SODIUM CHLORIDE 0.9% 100 ML IV SCH (02:00)
[2022-06-16] MEDS ORDERED: SODIUM BICARB INJ 50 MEQ in SODIUM CHLORIDE 0.45% 1,000 ML IV SCH (02:30)
[2022-06-16] MEDS: LACTATED RINGERS 1,000 ML IV SCH ×2 (03:24→12:29)
[2022-06-16 04:58] LABS: Basophils % 0.3 % (0.0-0.8); Hematocrit 33.1 VOL% (42.0-52.0); Hemoglobin 10.5 GM/DL (14.0-18.0); Immature Granulocytes % 0.4 %; Immature Granulocytes Absolute 0.04 #; Lymphocytes # 4.4 10*3/uL (1.4-4.0); Lymphocytes % 38.8 % (21.2-54.2); Mean Corpuscular HGB Conc 31.7 GM/DL (32-36); Mean Corpuscular Volume 98.2 FL (87-102); Mean Platelet Volume 10.3 FL (9.6-12.0); Monocytes # 0.7 10*3/uL (0.11-0.8); Monocytes % 6.5 % (1.7-12.7); Platelet Count 290 T/CUMM (130-400); Red Blood Count 3.37 MC/CUMM (3.8-5.5); White Blood Count 11.2 T/CUMM (4-12)
[2022-06-16 05:18] LABS: Calcium 8.8 MG/DL (8.5-10.1); Osmolality,Calculated 281.3 MOS/KG (273-304); Potassium 3.4 MMOL/L (3.5-5.1)
[2022-06-16] MEDS: INSULIN REGULAR 100 UNIT/ML SUBCUT SCH ×4 (07:42→21:18)
[2022-06-16 08:30] LABS: Calcium 8.4 MG/DL (8.5-10.1); Osmolality,Calculated 274.7 MOS/KG (273-304); Potassium 3.6 MMOL/L (3.5-5.1)
[2022-06-16] MEDS: PIPERACILLIN/TAZOBACTAM 3,375 MG in SODIUM CHLORIDE 0.9% 100 ML IV SCH ×2 (09:20→16:28)
[2022-06-16] MEDS: BISACODYL 5 MG TABLET PO SCH (09:21)
[2022-06-16] MEDS: PANTOPRAZOLE 40 MG TABLET PO SCH (09:21)
[2022-06-16] MEDS: ENOXAPARIN 40 MG/0.4 ML SYRINGE SUBCUT SCH (09:21)
[2022-06-16] MEDS: ACETAMINOPHEN 325 MG TABLET PO PRN (09:36)
[2022-06-16] MEDS: FOLIC ACID 1 MG TABLET PO SCH (12:26)
[2022-06-16] MEDS: ATORVASTATIN 40 MG TABLET PO SCH (12:26)
[2022-06-16] MEDS: METOPROLOL TARTRATE 25 MG TABLET PO SCH (12:26)
[2022-06-16] MEDS: DIVALPROEX ER 500 MG TABLET PO SCH ×2 (12:26→21:17)
[2022-06-16] MEDS: SERTRALINE 100 MG TABLET PO SCH (12:26)
[2022-06-16] MEDS: risperiDONE 1 MG TABLET PO SCH ×2 (12:27→21:18)
[2022-06-16] MEDS: PREDNISOLONE ACETATE 0.12% LEFT EYE SCH ×4 (12:28→22:16)
[2022-06-16 14:34] LABS: Calcium 8.3 MG/DL (8.5-10.1); Osmolality,Calculated 275.7 MOS/KG (273-304); Potassium 2.9 MMOL/L (3.5-5.1)
[2022-06-16] MEDS ORDERED: CALCIUM GLUCONATE RIDER 1,000 MG/50 ML PREMIX IV ONE (15:44)
[2022-06-16] MEDS: FERROUS SULFATE 325 MG TABLET PO SCH ×2 (16:26→21:18)
[2022-06-16] MEDS: OFLOXACIN 0.3% OPH SOLN 5 ML BOTTLE LEFT EYE SCH ×3 (16:27→21:18)
[2022-06-16] MEDS: ZINC OXIDE PASTE 113 GM TUBE TOP SCH (21:18)
[2022-06-17] MEDS: PIPERACILLIN/TAZOBACTAM 3,375 MG in SODIUM CHLORIDE 0.9% 100 ML IV SCH (01:14)
[2022-06-17] MEDS: METOPROLOL TARTRATE 25 MG TABLET PO SCH ×3 (01:15→20:57)
[2022-06-17 06:17] LABS: Calcium 8.7 MG/DL (8.5-10.1); Potassium 3.1 MMOL/L (3.5-5.1)
[2022-06-17] MEDS: INSULIN REGULAR 100 UNIT/ML SUBCUT SCH ×4 (07:29→20:48)
[2022-06-17] MEDS ORDERED: POTASSIUM CHLORIDE 20 MEQ TABLET PO ONE (09:00)
[2022-06-17] MEDS: POTASSIUM CHLORIDE 20 MEQ TABLET PO PRN ×3 (09:41→16:20)
[2022-06-17] MEDS: ATORVASTATIN 40 MG TABLET PO SCH (09:41)
[2022-06-17] MEDS: FERROUS SULFATE 325 MG TABLET PO SCH ×3 (09:44→20:39)
[2022-06-17] MEDS: FOLIC ACID 1 MG TABLET PO SCH (09:45)
[2022-06-17] MEDS: BISACODYL 5 MG TABLET PO SCH (09:45)
[2022-06-17] MEDS: risperiDONE 1 MG TABLET PO SCH ×2 (09:46→20:39)
[2022-06-17] MEDS: SERTRALINE 100 MG TABLET PO SCH (09:46)
[2022-06-17] MEDS: PANTOPRAZOLE 40 MG TABLET PO SCH (09:47)
[2022-06-17] MEDS: ENOXAPARIN 40 MG/0.4 ML SYRINGE SUBCUT SCH (09:47)
[2022-06-17] MEDS: cefTRIAXone 1,000 MG in SODIUM CHLORIDE 0.9% 100 ML IV SCH (09:48)
[2022-06-17] MEDS: DIVALPROEX ER 500 MG TABLET PO SCH ×2 (09:48→20:39)
[2022-06-17] MEDS: ZINC OXIDE PASTE 113 GM TUBE TOP SCH ×2 (09:57→20:12)
[2022-06-17] MEDS: OFLOXACIN 0.3% OPH SOLN 5 ML BOTTLE LEFT EYE SCH ×4 (09:57→20:12)
[2022-06-17] MEDS: PREDNISOLONE ACETATE 0.12% LEFT EYE SCH ×4 (10:23→20:48)
[2022-06-17] MEDS ORDERED: MAGNESIUM HYDROXIDE SUSP 30 ML UDCUP PO ONE (11:00)
[2022-06-18 05:26] LABS: Basophils % 0.4 % (0.0-0.8); Eosinophils # 0.2 10*3/uL (0.0-0.87); Eosinophils % 3.6 % (0.00-10.9); Hematocrit 27.8 VOL% (42.0-52.0); Hemoglobin 8.8 GM/DL (14.0-18.0); Immature Granulocytes % 0.3 %; Immature Granulocytes Absolute 0.02 #; Lymphocytes # 2.9 10*3/uL (1.4-4.0); Lymphocytes % 43.7 % (21.2-54.2); Mean Corpuscular HGB Conc 31.7 GM/DL (32-36); Mean Corpuscular Volume 100.7 FL (87-102); Mean Platelet Volume 10.4 FL (9.6-12.0); Monocytes # 0.5 10*3/uL (0.11-0.8); Monocytes % 7.3 % (1.7-12.7); Neutrophils % 44.7 % (38.7-73.9); Platelet Count 218 T/CUMM (130-400); Red Blood Count 2.76 MC/CUMM (3.8-5.5); Red Cell Distribution Width 15.9 % (9.3-17.3); White Blood Count 6.7 T/CUMM (4-12)
[2022-06-18 05:49] LABS: Calcium 8.3 MG/DL (8.5-10.1); Osmolality,Calculated 287.6 MOS/KG (273-304); Potassium 3.7 MMOL/L (3.5-5.1)
[2022-06-18] MEDS: INSULIN REGULAR 100 UNIT/ML SUBCUT SCH ×4 (07:55→22:38)
[2022-06-18] MEDS: ATORVASTATIN 40 MG TABLET PO SCH (10:03)
[2022-06-18] MEDS: SERTRALINE 100 MG TABLET PO SCH (10:03)
[2022-06-18] MEDS: METOPROLOL TARTRATE 25 MG TABLET PO SCH ×2 (10:03→22:37)
[2022-06-18] MEDS: BISACODYL 5 MG TABLET PO SCH (10:03)
[2022-06-18] MEDS: risperiDONE 1 MG TABLET PO SCH ×2 (10:03→22:42)
[2022-06-18] MEDS: FERROUS SULFATE 325 MG TABLET PO SCH ×3 (10:03→22:37)
[2022-06-18] MEDS: FOLIC ACID 1 MG TABLET PO SCH (10:04)
[2022-06-18] MEDS: ZINC OXIDE PASTE 113 GM TUBE TOP SCH ×2 (10:04→22:37)
[2022-06-18] MEDS: ENOXAPARIN 40 MG/0.4 ML SYRINGE SUBCUT SCH (10:04)
[2022-06-18] MEDS: cefTRIAXone 1,000 MG in SODIUM CHLORIDE 0.9% 100 ML IV SCH (10:04)
[2022-06-18] MEDS: DIVALPROEX ER 500 MG TABLET PO SCH ×2 (10:04→22:37)
[2022-06-18] MEDS: PREDNISOLONE ACETATE 0.12% LEFT EYE SCH ×5 (10:05→22:38)
[2022-06-18] MEDS: OFLOXACIN 0.3% OPH SOLN 5 ML BOTTLE LEFT EYE SCH ×4 (10:05→22:48)
[2022-06-18] MEDS ORDERED: LACTATED RINGERS 500 ML IV ONE (12:10)
[2022-06-18] MEDS: LACTATED RINGERS 1,000 ML IV SCH ×2 (18:37→22:47)
[2022-06-19 06:00] LABS: Basophils % 0.3 % (0.0-0.8); Eosinophils # 0.3 10*3/uL (0.0-0.87); Eosinophils % 4.6 % (0.00-10.9); Hemoglobin 9.1 GM/DL (14.0-18.0); Immature Granulocytes % 0.5 %; Immature Granulocytes Absolute 0.03 #; Lymphocytes # 2.8 10*3/uL (1.4-4.0); Lymphocytes % 47.1 % (21.2-54.2); Mean Corpuscular HGB Conc 31.4 GM/DL (32-36); Mean Platelet Volume 10.6 FL (9.6-12.0); Monocytes # 0.3 10*3/uL (0.11-0.8); Monocytes % 5.5 % (1.7-12.7); Platelet Count 209 T/CUMM (130-400); Red Blood Count 2.87 MC/CUMM (3.8-5.5); Red Cell Distribution Width 15.9 % (9.3-17.3)
[2022-06-19 06:02] LABS: Calcium 8.2 MG/DL (8.5-10.1); Osmolality,Calculated 287.7 MOS/KG (273-304); Potassium 3.6 MMOL/L (3.5-5.1)
[2022-06-19] MEDS: INSULIN REGULAR 100 UNIT/ML SUBCUT SCH ×4 (08:19→20:22)
[2022-06-19] MEDS: LACTATED RINGERS 1,000 ML IV SCH ×2 (09:19→20:25)
[2022-06-19] MEDS: cefTRIAXone 1,000 MG in SODIUM CHLORIDE 0.9% 100 ML IV SCH (09:19)
[2022-06-19] MEDS: SERTRALINE 100 MG TABLET PO SCH (09:20)
[2022-06-19] MEDS: risperiDONE 1 MG TABLET PO SCH ×2 (09:20→20:16)
[2022-06-19] MEDS: FOLIC ACID 1 MG TABLET PO SCH (09:20)
[2022-06-19] MEDS: ENOXAPARIN 40 MG/0.4 ML SYRINGE SUBCUT SCH (09:20)
[2022-06-19] MEDS: OFLOXACIN 0.3% OPH SOLN 5 ML BOTTLE LEFT EYE SCH ×4 (09:21→20:20)
[2022-06-19] MEDS: BISACODYL 5 MG TABLET PO SCH (09:21)
[2022-06-19] MEDS: FERROUS SULFATE 325 MG TABLET PO SCH ×3 (09:21→20:16)
[2022-06-19] MEDS: DIVALPROEX ER 500 MG TABLET PO SCH ×2 (09:21→20:16)
[2022-06-19] MEDS: ATORVASTATIN 40 MG TABLET PO SCH (09:21)
[2022-06-19] MEDS: ZINC OXIDE PASTE 113 GM TUBE TOP SCH ×2 (09:21→20:20)
[2022-06-19] MEDS: METOPROLOL TARTRATE 25 MG TABLET PO SCH ×2 (09:53→20:17)
[2022-06-19] MEDS: PREDNISOLONE ACETATE 0.12% LEFT EYE SCH ×4 (09:53→20:23)
[2022-06-19] MEDS: MEROPENEM 500 MG in SODIUM CHLORIDE 0.9% 100 ML IV SCH (18:37)
[2022-06-20] MEDS: MEROPENEM 500 MG in SODIUM CHLORIDE 0.9% 100 ML IV SCH ×4 (01:35→17:43)
[2022-06-20 05:39] LABS: Basophils % 0.3 % (0.0-0.8); Eosinophils # 0.3 10*3/uL (0.0-0.87); Eosinophils % 3.8 % (0.00-10.9); Hematocrit 29.6 VOL% (42.0-52.0); Hemoglobin 9.2 GM/DL (14.0-18.0); Immature Granulocytes % 0.5 %; Immature Granulocytes Absolute 0.03 #; Lymphocytes # 2.2 10*3/uL (1.4-4.0); Lymphocytes % 34.1 % (21.2-54.2); Mean Corpuscular HGB Conc 31.1 GM/DL (32-36); Mean Corpuscular Volume 101.4 FL (87-102); Mean Platelet Volume 10.9 FL (9.6-12.0); Monocytes # 0.3 10*3/uL (0.11-0.8); Monocytes % 5.2 % (1.7-12.7); Neutrophils % 56.1 % (38.7-73.9); Platelet Count 216 T/CUMM (130-400); Red Blood Count 2.92 MC/CUMM (3.8-5.5); Red Cell Distribution Width 16.2 % (9.3-17.3); White Blood Count 6.5 T/CUMM (4-12)
[2022-06-20 06:00] LABS: Calcium 7.8 MG/DL (8.5-10.1); Osmolality,Calculated 290.3 MOS/KG (273-304); Potassium 3.5 MMOL/L (3.5-5.1)
[2022-06-20] MEDS: FERROUS SULFATE 325 MG TABLET PO SCH ×3 (10:48→21:38)
[2022-06-20] MEDS: FOLIC ACID 1 MG TABLET PO SCH (10:48)
[2022-06-20] MEDS: ATORVASTATIN 40 MG TABLET PO SCH (10:48)
[2022-06-20] MEDS: DIVALPROEX ER 500 MG TABLET PO SCH ×2 (10:48→21:38)
[2022-06-20] MEDS: BISACODYL 5 MG TABLET PO SCH (10:48)
[2022-06-20] MEDS: SERTRALINE 100 MG TABLET PO SCH (10:48)
[2022-06-20] MEDS: INSULIN REGULAR 100 UNIT/ML SUBCUT SCH ×4 (10:49→21:39)
[2022-06-20] MEDS: LACTATED RINGERS 1,000 ML IV SCH ×2 (10:49→21:43)
[2022-06-20] MEDS: risperiDONE 1 MG TABLET PO SCH ×2 (10:49→21:39)
[2022-06-20] MEDS: OFLOXACIN 0.3% OPH SOLN 5 ML BOTTLE LEFT EYE SCH ×4 (10:50→21:40)
[2022-06-20] MEDS: ZINC OXIDE PASTE 113 GM TUBE TOP SCH ×2 (10:50→21:43)
[2022-06-20] MEDS: PREDNISOLONE ACETATE 0.12% LEFT EYE SCH ×4 (10:50→22:02)
[2022-06-20] MEDS: ENOXAPARIN 40 MG/0.4 ML SYRINGE SUBCUT SCH (10:51)
[2022-06-20] MEDS: METOPROLOL TARTRATE 25 MG TABLET PO SCH ×2 (10:53→21:39)
[2022-06-21] MEDS: MEROPENEM 500 MG in SODIUM CHLORIDE 0.9% 100 ML IV SCH ×2 (03:41→10:16)
[2022-06-21] MEDS: LACTATED RINGERS 1,000 ML IV SCH (03:41)
[2022-06-21] MEDS: ACETAMINOPHEN 325 MG TABLET PO PRN (03:42)
[2022-06-21] MEDS: OFLOXACIN 0.3% OPH SOLN 5 ML BOTTLE LEFT EYE SCH ×4 (10:02→20:49)
[2022-06-21] MEDS: INSULIN REGULAR 100 UNIT/ML SUBCUT SCH ×4 (10:02→20:49)
[2022-06-21] MEDS: BISACODYL 5 MG TABLET PO SCH (10:03)
[2022-06-21] MEDS: risperiDONE 1 MG TABLET PO SCH ×2 (10:03→20:49)
[2022-06-21] MEDS: ATORVASTATIN 40 MG TABLET PO SCH (10:04)
[2022-06-21] MEDS: FERROUS SULFATE 325 MG TABLET PO SCH ×3 (10:04→20:49)
[2022-06-21] MEDS: DIVALPROEX ER 500 MG TABLET PO SCH ×2 (10:04→20:49)
[2022-06-21] MEDS: METOPROLOL TARTRATE 25 MG TABLET PO SCH ×2 (10:04→20:49)
[2022-06-21] MEDS: SERTRALINE 100 MG TABLET PO SCH (10:04)
[2022-06-21] MEDS: FOLIC ACID 1 MG TABLET PO SCH (10:04)
[2022-06-21] MEDS: PREDNISOLONE ACETATE 0.12% LEFT EYE SCH ×4 (10:05→20:50)
[2022-06-21] MEDS: ENOXAPARIN 40 MG/0.4 ML SYRINGE SUBCUT SCH (10:05)
[2022-06-21] MEDS: ZINC OXIDE PASTE 113 GM TUBE TOP SCH ×2 (10:06→20:51)
[2022-06-21] MEDS: LEVOFLOXACIN 750 MG TABLET PO SCH (10:11)
[2022-06-22] MEDS: INSULIN REGULAR 100 UNIT/ML SUBCUT SCH ×4 (08:38→21:34)
[2022-06-22] MEDS: risperiDONE 1 MG TABLET PO SCH ×2 (09:44→21:33)
[2022-06-22] MEDS: DIVALPROEX ER 500 MG TABLET PO SCH ×2 (09:44→21:33)
[2022-06-22] MEDS: METOPROLOL TARTRATE 25 MG TABLET PO SCH ×2 (09:44→21:34)
[2022-06-22] MEDS: SERTRALINE 100 MG TABLET PO SCH (09:44)
[2022-06-22] MEDS: ATORVASTATIN 40 MG TABLET PO SCH (09:44)
[2022-06-22] MEDS: ENOXAPARIN 40 MG/0.4 ML SYRINGE SUBCUT SCH (09:45)
[2022-06-22] MEDS: FOLIC ACID 1 MG TABLET PO SCH (09:45)
[2022-06-22] MEDS: FERROUS SULFATE 325 MG TABLET PO SCH ×3 (09:45→21:33)
[2022-06-22] MEDS: ZINC OXIDE PASTE 113 GM TUBE TOP SCH ×2 (09:45→21:34)
[2022-06-22] MEDS: LEVOFLOXACIN 750 MG TABLET PO SCH (09:45)
[2022-06-22] MEDS: BISACODYL 5 MG TABLET PO SCH (09:45)
[2022-06-22] MEDS: OFLOXACIN 0.3% OPH SOLN 5 ML BOTTLE LEFT EYE SCH ×4 (09:46→21:34)
[2022-06-22] MEDS: PREDNISOLONE ACETATE 0.12% LEFT EYE SCH ×4 (09:46→21:35)
[2022-06-23] MEDS: INSULIN REGULAR 100 UNIT/ML SUBCUT SCH ×4 (08:54→20:24)
[2022-06-23] MEDS: ENOXAPARIN 40 MG/0.4 ML SYRINGE SUBCUT SCH (09:07)
[2022-06-23] MEDS: risperiDONE 1 MG TABLET PO SCH ×2 (09:08→20:26)
[2022-06-23] MEDS: FERROUS SULFATE 325 MG TABLET PO SCH ×3 (09:08→20:26)
[2022-06-23] MEDS: FOLIC ACID 1 MG TABLET PO SCH (09:08)
[2022-06-23] MEDS: BISACODYL 5 MG TABLET PO SCH (09:08)
[2022-06-23] MEDS: ATORVASTATIN 40 MG TABLET PO SCH (09:08)
[2022-06-23] MEDS: LEVOFLOXACIN 750 MG TABLET PO SCH (09:08)
[2022-06-23] MEDS: SERTRALINE 100 MG TABLET PO SCH (09:08)
[2022-06-23] MEDS: ZINC OXIDE PASTE 113 GM TUBE TOP SCH ×2 (09:09→20:25)
[2022-06-23] MEDS: OFLOXACIN 0.3% OPH SOLN 5 ML BOTTLE LEFT EYE SCH ×4 (09:09→20:25)
[2022-06-23] MEDS: DIVALPROEX ER 500 MG TABLET PO SCH ×2 (09:12→20:26)
[2022-06-23] MEDS: PHENOL 1.4% THROAT SPRAY 177 ML BOTTLE PO PRN ×2 (10:41→20:48)
[2022-06-23] MEDS: PREDNISOLONE ACETATE 0.12% LEFT EYE SCH ×4 (10:49→20:24)
[2022-06-23] MEDS ORDERED: TUBERCULIN SKIN TEST 0.1 ML SYRINGE INTRADERM ONE (17:00)
[2022-06-24] MEDS: SERTRALINE 100 MG TABLET PO SCH (08:50)
[2022-06-24] MEDS: INSULIN REGULAR 100 UNIT/ML SUBCUT SCH ×2 (08:50→11:53)
[2022-06-24] MEDS: BISACODYL 5 MG TABLET PO SCH (08:50)
[2022-06-24] MEDS: LEVOFLOXACIN 750 MG TABLET PO SCH (08:50)
[2022-06-24] MEDS: FERROUS SULFATE 325 MG TABLET PO SCH (08:50)
[2022-06-24] MEDS: ATORVASTATIN 40 MG TABLET PO SCH (08:50)
[2022-06-24] MEDS: risperiDONE 1 MG TABLET PO SCH (08:50)
[2022-06-24] MEDS: DIVALPROEX ER 500 MG TABLET PO SCH (08:51)
[2022-06-24] MEDS: ZINC OXIDE PASTE 113 GM TUBE TOP SCH (08:51)
[2022-06-24] MEDS: OFLOXACIN 0.3% OPH SOLN 5 ML BOTTLE LEFT EYE SCH ×2 (08:51→12:08)
[2022-06-24] MEDS: FOLIC ACID 1 MG TABLET PO SCH (08:51)
[2022-06-24] MEDS: ENOXAPARIN 40 MG/0.4 ML SYRINGE SUBCUT SCH (08:51)
[2022-06-24] MEDS: PREDNISOLONE ACETATE 0.12% LEFT EYE SCH ×2 (08:52→12:08)
[2022-06-24] MEDS ORDERED: CHLORHEXIDINE 0.12% ORAL RINSE 60 ML BOTTLE SWISH/SPIT SCH (09:00)
[2022-06-24 11:40] VITALS: BP 113/49
== END 2022-06-24 13:10 | disposition swing bed (61) | DRG 689 ==
LOC: EDBD → EDUNIT# → N.ED 22:29 → N.EDINP 22:29 → SUATTDRO 06-16 01:49 → N.5E 06-16 02:18
PROVIDERS: ADMIT Hospitalist; ATTEND Internal Medicine Geriatric Medicine